=== PATIENT | male | born 1970 | race Caucasian/White ===

== ENCOUNTER 2018-12-18 22:08 | Inpatient (IN) | payer OTHER ==
[~2018-12-18] VITALS: Ht 167.6 cm; Wt 83.0 kg
[2018-12-18 22:12] VITALS: Ht 167.6 cm; Wt 83.0 kg
--- NOTE | 2018-12-18 22:20 | NUR ---
PT CAME TO ED CO ABD PAIN. PT STS THE PAIN HAS BEEN PRESENT X2 DAYS. PT STS HIS BOWEL MOVEMENTS HAVE BEEN NORMAL. UPON ASSESSMENT ABD IS SOFT AND FLAT. PAIN UPON PALPATION IN MIDDLE ABD AND LEFT LOWER ABD PAIN. BOWEL SOUNDS PRESENT IN ALL FOUR QUADRANTS. AT BEDSIDE. NO S/S OF DISTRESS. RESP E/U. COMFORT MEASURES IMPLEMENTED. CALL LIGHT W/IN REACH WILL CONTINUE TO MONITOR.
--- NOTE | 2018-12-18 22:23 | NUR ---
DR. NGUYỄN AT BEDSIDE FOR MSE.
[2018-12-18 22:31] LABS: microscopic required? NO
[2018-12-18 22:37] LABS: BASOPHIL % 0.3 % (0-2); PLATELET COUNT 172 x10^3mcL (130-400); RED CELL DISTRIBUTION WIDTH 13.1 % (11.5-14.5)
[2018-12-18 22:39] LABS: urine erythrocyte NEGATIVE (NEGATIVE)
[2018-12-18 22:57] LABS: CALCIUM 7.8 mg/dL (8.5-10.1); CARBON DIOXIDE 23.8 mmol/L (21-32); CHLORIDE SERUM 102 mmol/L (98-107); CREATININE SERUM 0.6 mg/dL (0.7-1.3); GFR1 > 60 mL/min; GLUCOSE SERUM 372 mg/dL (74-106); POTASSIUM SERUM 3.7 mmol/L (3.5-5.1); SODIUM SERUM 139 mmol/L (136-145)
[2018-12-18 23:02] LABS: ALBUMIN 3.4 g/dL (3.4-5.0); ALKALINE PHOSPHATASE 119 U/L (46-116); ALT/SGPT 27 U/L (16-63); AST/SGOT 18 U/L (15-37); BILIRUBIN TOTAL 0.46 mg/dL (0.20-1.00); LIPASE 106 IU/L (73-393); TOTAL PROTEIN, SERUM 6.5 g/dL (6.4-8.2)
--- NOTE | 2018-12-18 23:06 | NUR ---
PT MEDICATED PER ORDER. PT VERBALIZED UNDERSTAND OF MEDICATION. SEE EMAR FOR DETAILS.
--- NOTE | 2018-12-19 00:26 | NUR ---
PT MEDICATED PER ORDER. SEE EMAR FOR DETAILS.
--- NOTE | 2018-12-19 00:28 | NUR ---
RESIDENT AT BEDSIDE TO DISCUSSION POC.
--- NOTE | 2018-12-19 00:51 | NUR ---
PT MEDICATED PER ODER. SEE EMAR FOR DETAILS.
--- NOTE | 2018-12-19 01:03 | NUR ---
REPORT GIVEN TO TIAGO METCALF TO ASSUME CARE OF PT . NOTIFIED THAT NS RUNNING AT 150ML/HR AND TO RECHECK BLOOD SUGAR IN 1 HOUR.
[2018-12-19 01:11] LABS: CHOLESTEROL/HDL RATIO 3.7; MAGNESIUM 1.9 mg/dL (1.8-2.4); PHOSPHOROUS 2.6 mg/dL (2.5-4.9)
[2018-12-19 01:22] LABS: FREE T4 1.12 ng/dL (0.76-1.46); T4(THYROXINE) 8.2 ug/dL (4.7-13.3)
[2018-12-19 01:32] VITALS: BP 123/69
--- NOTE | 2018-12-19 01:33 | NUR ---
PT TRANSFERRED TO MED SURG FLOOR ACCOMPANIED BY EMT. PT STABLE ON DISCHARGE. IV SITE PATENT. PT DENIES PAIN OR DISCOMFORT TO SITE. IV FLUIDS RUNNING, NURSE MADE AWARE IN REPORT.
[2018-12-19 02:34] LABS: T3 TOTAL 0.95 ng/mL
--- NOTE | 2018-12-19 02:51 | NUR ---
PATIENT ARRIVED TO THE UNIT AT 0132 VIA [facility] ACCOMPANIED BY ED STAFF AND FAMILY. ON ROOM AIR. NO SOB OR DISTRESS NOTED. DENIES CHEST PAIN. NO C/O OF PAIN. ORIENTED PATIENT TO THE ROOM AND CALL LIGHT. CALL LIGHT IS WITHIN REACH. INSTRUCTED PATIENT TO CALL FOR ASSISTANCE. PATIENT DECIDED TO LEAVE AMA AT 0205. DR. DEAN SPOKE WITH THE PATIENT. PATIENT SIGNED AMA FORM. IV DC'D. CATHETER INTACT. JOCELYNE RAMIREZ, ACCOMPANIED PATIENT AND WITH BELONGINGS TO [employer]. END LATHE OPERATOR MADE AWARE.
== END 2018-12-19 02:51 | disposition left against medical advice (07) | DRG 392 ==
LOC: ED 22:08 → MU 12-19 00:15
PROVIDERS: Emergency Medicine; ADMIT Internal Medicine
DX: K52.9 Noninfective gastroenteritis and colitis, unspecified (principal); K56.600 Partial intestinal obstruction, unspecified as to cause; E11.65 Type 2 diabetes mellitus with hyperglycemia; E83.51 Hypocalcemia; R82.4 Acetonuria; E86.0 Dehydration; Z87.891 Personal history of nicotine dependence; Z53.21 Procedure and treatment not carried out due to patient leaving prior to being seen by health care provider
CPT/HCPCS: 82962; 84439; J1815; J1885; J2405; J3010; J7030